=== PATIENT | female | born 1950 | race Two or more races ===

== ENCOUNTER 2019-01-15 08:08 | Outpatient (CLI) | payer OTHER | END 2019-01-15 09:23 | disposition home or self-care (01) | LOC: SONOGRAMA 08:08 | DX: E04.1 Nontoxic single thyroid nodule (principal) ==

== ENCOUNTER 2021-07-20 11:26 | Outpatient (CLI) | payer OTHER | END 2021-07-20 11:33 | disposition home or self-care (01) | LOC: SONOGRAMA 11:26 | PROVIDERS: ATTEND Pathology Anatomic Pathology & Clinical Pathology | DX: E04.2 Nontoxic multinodular goiter (principal) ==